=== PATIENT | female | born 1980 | race Caucasian/White ===

== ENCOUNTER 2018-01-19 21:10 | Emergency (ER) | payer SELFPAY ==
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
[2018-01-19] MEDS ORDERED: ACETAMINOPHEN 500 MG TABLET PO ONE (21:20)
== END 2018-01-19 22:00 | disposition home or self-care (01) ==
LOC: ED 21:10
DX: Z02.89 Encounter for other administrative examinations (principal); F12.90 Cannabis use, unspecified, uncomplicated
CPT/HCPCS: 99282